=== PATIENT | male | born 1930 ===

== ENCOUNTER 2019-04-05 11:03 | Inpatient (IN) | payer OTHER ==
[~2019-04-05] VITALS: Ht 188 cm; Wt 98.2 kg
[2019-04-05] MEDS ORDERED: GLIP2.5ER PO (11:09)
[2019-04-05] MEDS ORDERED: LISI-662 PO (11:09)
[2019-04-05] MEDS ORDERED: VERA180SR PO (11:09)
[2019-04-05] MEDS ORDERED: VARD10TA20 PO (11:09)
[2019-04-05] MEDS ORDERED: ATEN50TA PO (11:09)
[2019-04-05] MEDS ORDERED: ATOR40TA28 PO (11:09)
[2019-04-05 11:41] LABS: BASOPHILS % (AUTO) 0.2 % (0.0-2.0); EOSINOPHILS % (AUTO) 0 % (1.0-6.0); HEMATOCRIT 41.6 % (41-53); HEMOGLOBIN 13.7 g/dL (13.5-17.5); LYMPHOCYTES # (AUTO) 1.1 K/uL (1.0-4.8); LYMPHOCYTES % (AUTO) 6.5 % (22.0-44.0); MEAN CORPUSCULAR HEMOGLOBIN 30.7 pg (26.0-34.0); MEAN CORPUSCULAR VOLUME 93 fL (80-100); MONOCYTES # (AUTO) 1.1 K/uL (0.1-1.0); MONOCYTES % (AUTO) 6.8 % (2.0-9.0); PLATELET COUNT (AUTO) 419 K/uL (150-450); RED BLOOD CELL COUNT(AUTO) 4.47 MIL/uL (4.50-5.90); RED CELL DISTRIBUTION WIDTH 13.7 % (11.5-14.5)
[2019-04-05 11:43] LABS: APPEARANCE,URINE CLEAR (CLEAR); BILIRUBIN,URINE NEGATIVE (NEGATIVE); GLUCOSE, URINE (UA) >=1000 mg/dL (NEGATIVE); KETONES,URINE 15 mg/dL (NEGATIVE); LEUKOCYTE ESTERASE ,URINE NEGATIVE (NEGATIVE); NEUTROPHILS % (AUTO) 86.5 % (40.0-70.0); NITRATE,URINE NEGATIVE (NEGATIVE); OCCULT BLOOD,URINE LARGE (NEGATIVE); PROTEIN,URINE SEE CONFIRM (NEGATIVE); UROBILINOGEN,URINE 0.2 mg/dL (<=1.0)
[2019-04-05] MEDS ORDERED: LORazepam 2 MG/ML VIAL ONE (11:48)
[2019-04-05] MEDS ORDERED: SODIUM CHLORIDE 0.9% 100 ML ONE (11:50)
[2019-04-05] MEDS ORDERED: IOVERSOL 350 MG/ML 100 ML VIAL ONE (11:50)
[2019-04-05 11:56] LABS: AMPHET/METH SCREEN,URINE NEGATIVE (NEGATIVE); BARBITURATE SCREEN, URINE NEGATIVE (NEGATIVE); BENZODIAZEPINES SCREEN,URINE NEGATIVE (NEGATIVE); CANNABINOID SCREEN,URINE NEGATIVE (NEGATIVE); COCAINE SCREEN,URINE NEGATIVE (NEGATIVE); METHADONE SCREEN, URINE NEGATIVE (NEGATIVE); OPIATE SCREEN,URINE NEGATIVE (NEGATIVE); PROTHROMBIN TIME 10.1 SEC (9.4-11.6)
[2019-04-05 11:57] LABS: PHENCYCLIDINE SCREEN,URINE NEGATIVE (NEGATIVE)
[2019-04-05] MEDS ORDERED: LORazepam 2 MG/ML VIAL IVP ONE (12:00)
[2019-04-05 12:06] LABS: LACTIC ACID 4.2 mmol/L (0.4-2.0)
[2019-04-05 12:09] LABS: ALANINE AMINOTRANSFERASE 17 U/L (12-78); ALBUMIN 3.5 g/dL (3.4-5.0); ALKALINE PHOSPHATASE 105 U/L (46-116); ANION GAP 20 mmol/L (8-16); ASPARTATE AMINOTRANSFERASE 32 U/L (15-37); BILIRUBIN,TOTAL 0.8 mg/dL (0.1-1.0); CALCIUM, TOTAL 9.9 mg/dL (8.8-10.5); CARBON DIOXIDE 19 mmol/L (22-29); CHLORIDE 95 mmol/L (98-107); CREATININE 2.08 mg/dL (0.60-1.30); GLOMERULAR FILTR. RATE CALC 28 mL/min (>60); POTASSIUM 3.9 mmol/L (3.5-5.1); SODIUM SERUM 134 mmol/L (136-145); TOTAL PROTEIN, SERUM 8.5 g/dL (6.4-8.2); UREA NITROGEN, BLOOD 40 mg/dL (7-18)
[2019-04-05] MEDS ORDERED: SODIUM CHLORIDE 0.9% 3,250 ML IV ONE (12:11)
[2019-04-05 12:14] LABS: GLUCOSE,RANDOM 663 mg/dL (70-110)
[2019-04-05] MEDS ORDERED: FentaNYL CITRATE-PF 100 MCG/2 ML VIAL ONE (12:19)
[2019-04-05 12:21] LABS: SULFOSALICYLIC ACID,URINE 3+ (Negative)
[2019-04-05 12:23] LABS: RBC,URINE 0-2 /HPF (0-2)
[2019-04-05 12:24] LABS: BACTERIA,URINE None Seen /HPF (None Seen); SQUAMOUS EPITHELIAL CELL,UR Few /LPF (None Seen); WBC,URINE 0-2 /HPF (0-5)
[2019-04-05] MEDS ORDERED: FentaNYL CITRATE-PF 100 MCG/2 ML VIAL IVP ONE (12:30)
[2019-04-05] MEDS ORDERED: INSULIN REGULAR, HUMAN 100 UNITS/ML IVP ONE ×4 (12:30→20:45)
[2019-04-05] MEDS ORDERED: PIPERACILLIN/TAZO 3.375 GM/D5W 50 ML IV ONE (13:45)
[2019-04-05] MEDS ORDERED: LABETALOL HCL 5 MG/ML 20 ML VIAL IVP ONE ×2 (13:45→14:45)
[2019-04-05] MEDS ORDERED: ASPIRIN 325 MG TABLET PO ONE (13:45)
[2019-04-05] MEDS ORDERED: CefTRIAXone 1 GM/DEXTROSE 50 ML IV ONE (13:45)
[2019-04-05 14:14] LABS: GLUCOSE,POINT OF CARE 507 MG/DL (70-110)
[2019-04-05] MEDS ORDERED: ASPIRIN 300 MG RECTAL SUPPOSITORY PR ONE (14:15)
[2019-04-05 14:44] LABS: ABG A-A DIFF O2 22.7 mmHg (10-20.0); ABG BASE EXCESS -5.3 mmol/L (-2.0-3.0); ABG CARBOXYHEMOGLOBIN 0.6 % (0.0-1.5); ABG HCO3 20.7 mmol/L (22.0-26.0); ABG METHEMOGLOBIN 0.1 % (0.0-1.5); ABG OXYGEN CONTENT 16.9 mL/dL (15.0-23.0); ABG OXYGEN SATURATION 94.5 % (95.0-98.0); ABG OXYHEMOGLOBIN 93.8 % (94.0-100.0); ABG PCO2 37 mmHg (35-45); ABG PH 7.358 (7.35-7.450); ABG TOTAL HEMOGLOBIN 12.8 G/dL (12.0-18.0); PO2, ARTERIAL BG 82.4 mmHg (71.0-79.0); SOURCE, BLOOD GAS ARTERIAL; TEMPERATURE, FAHRENHEIT, BG 100.5 FAHREN (96.0-98.6)
[2019-04-05 14:45] LABS: O2 DEVICE,BLOOD GAS ROOM AIR (ROOM AIR); SITE, BLOOD GAS RT RADIAL
[2019-04-05] MEDS ORDERED: NITROGLYCERIN 2% (1 GM=INCH) PACKET TP ONE (14:45)
[2019-04-05] MEDS ORDERED: VANCOMYCIN HCL 1 GM/D5% WATER 200 ML IV ONE ×2 (15:15→21:30)
[2019-04-05 15:21] LABS: GLUCOSE,POINT OF CARE 459 MG/DL (70-110)
[2019-04-05] MEDS: NITROPRUSSIDE SODIUM 50 MG in DEXTROSE 5%-WATER 248 ML IV PRN ×2 (15:32→19:52)
[2019-04-05 15:36] LABS: INFLUENZA TYPE A NEGATIVE FOR TYPE A (NEGATIVE); INFLUENZA TYPE B NEGATIVE FOR TYPE B (NEGATIVE)
[2019-04-05] MEDS ORDERED: ONDANSETRON HCL 4 MG/2 ML VIAL IVP PRN (16:00)
[2019-04-05] MEDS ORDERED: 0.9% SODIUM CHLORIDE 10 ML SYRINGE IVP PRN (16:00)
[2019-04-05] MEDS ORDERED: ACETAMINOPHEN 325 MG TABLET PO PRN (16:00)
[2019-04-05 16:36] LABS: GLUCOSE,POINT OF CARE 403 MG/DL (70-110)
[2019-04-05 18:38] LABS: GLUCOSE,POINT OF CARE 409 MG/DL (70-110)
[2019-04-05 20:00] VITALS: BP 195/116
[2019-04-05] MEDS ORDERED: SODIUM CHLORIDE 0.45% 1,000 ML IV PRN ×2 (20:38→20:50)
[2019-04-05] MEDS ORDERED: POTASSIUM CHL 20 MEQ/0.45% NS 1,000 ML IV PRN ×2 (20:38→20:50)
[2019-04-05] MEDS ORDERED: POTASSIUM CHLORIDE 40 MEQ in SODIUM CHLORIDE 0.45% 1,000 ML IV PRN ×2 (20:38→20:50)
[2019-04-05] MEDS ORDERED: DEXTROSE 5%-0.45% SODIUM CHL 1,000 ML IV PRN ×2 (20:38→20:50)
[2019-04-05] MEDS ORDERED: VANCOMYCIN HCL 1 GM/D5% WATER 200 ML IV SCH (20:45)
[2019-04-05] MEDS ORDERED: INSULIN REGULAR, HUMAN 100 UNITS/ML IVP PRN (20:45)
[2019-04-05] MEDS ORDERED: DEXTROSE 50%-WATER 25 GM/50 ML SYRINGE IVP PRN ×2 (20:45→21:00)
[2019-04-05] MEDS ORDERED: SODIUM CHLORIDE 0.9% 1,000 ML IV SCH (20:50)
[2019-04-05 21:11] LABS: BASOPHILS % (AUTO) 0.5 % (0.0-2.0); EOSINOPHILS % (AUTO) 0.1 % (1.0-6.0); HEMATOCRIT 36.8 % (41-53); HEMOGLOBIN 12.5 g/dL (13.5-17.5); LYMPHOCYTES # (AUTO) 1.7 K/uL (1.0-4.8); LYMPHOCYTES % (AUTO) 9.2 % (22.0-44.0); MEAN CORPUSCULAR HEMOGLOBIN 30.8 pg (26.0-34.0); MEAN CORPUSCULAR HGB CONC 33.9 G/dL (31.0-37.0); MEAN CORPUSCULAR VOLUME 91 fL (80-100); MONOCYTES # (AUTO) 1.7 K/uL (0.1-1.0); MONOCYTES % (AUTO) 9.4 % (2.0-9.0); NEUTROPHILS # (AUTO) 14.6 K/uL (1.8-7.7); NEUTROPHILS % (AUTO) 80.8 % (40.0-70.0); PLATELET COUNT (AUTO) 375 K/uL (150-450); RED BLOOD CELL COUNT(AUTO) 4.04 MIL/uL (4.50-5.90); RED CELL DISTRIBUTION WIDTH 13.7 % (11.5-14.5)
[2019-04-05] MEDS ORDERED: VANCOMYCIN HCL 1 GM/D5% WATER 200 ML IV PRN ×2 (21:15)
[2019-04-05] MEDS: SODIUM CHLORIDE 0.45% 1,000 ML IV SCH (21:16)
[2019-04-05 21:25] LABS: ALBUMIN 3.1 g/dL (3.4-5.0); BILIRUBIN,TOTAL 0.7 mg/dL (0.1-1.0); CALCIUM, TOTAL 8.6 mg/dL (8.8-10.5); CREATININE 1.98 mg/dL (0.60-1.30); MAGNESIUM 1.9 mg/dL (1.80-2.40); POTASSIUM 3.5 mmol/L (3.5-5.1); TOTAL PROTEIN, SERUM 7.7 g/dL (6.4-8.2)
[2019-04-05] MEDS: INSULIN REGULAR, HUMAN 100 UNITS in SODIUM CHLORIDE 0.9% 99 ML IV PRN ×4 (21:35→23:09)
[2019-04-05] MEDS: PIPERACILLIN/TAZO 3.375 GM/D5W 50 ML IV SCH (22:18)
[2019-04-05] MEDS: INSULIN REGULAR, HUMAN 100 UNITS/ML IVP PRN (23:10)
[2019-04-05] MEDS ORDERED: PNEUMOCOCCAL VACCINE POLYVALENT 0.5 ML VIAL [PPSV23] IM ONE (23:45)
[2019-04-05] MEDS ORDERED: INFLUENZA VIRUS VACCINE QVS 2019-20 (3YR+)/PF 60 MCG/0.5 ML SYRINGE IM ONE (23:45)
[2019-04-06] VITALS (7 sets, daily range): BP systolic 126–162; BP diastolic 79–104
[2019-04-06] MEDS: INSULIN REGULAR, HUMAN 100 UNITS/ML IVP PRN (00:10)
[2019-04-06 01:18] LABS: GLUCOSE,POINT OF CARE 315 MG/DL (70-110)
[2019-04-06 01:18] LABS: GLUCOSE,POINT OF CARE 364 MG/DL (70-110)
[2019-04-06 01:18] LABS: GLUCOSE,POINT OF CARE 214 MG/DL (70-110)
[2019-04-06 01:18] LABS: GLUCOSE,POINT OF CARE 286 MG/DL (70-110)
[2019-04-06 01:47] LABS: CALCIUM, TOTAL 8.6 mg/dL (8.8-10.5); CREATININE 1.96 mg/dL (0.60-1.30); POTASSIUM 3.3 mmol/L (3.5-5.1)
[2019-04-06 02:15] LABS: GLUCOSE,POINT OF CARE 167 MG/DL (70-110)
[2019-04-06] MEDS: POTASSIUM CHL 10 MEQ/WATER 50 ML IV PRN ×3 (02:23→06:07)
[2019-04-06] MEDS: PIPERACILLIN/TAZO 3.375 GM/D5W 50 ML IV SCH ×4 (03:10→22:05)
[2019-04-06 03:24] LABS: GLUCOSE,POINT OF CARE 128 MG/DL (70-110)
[2019-04-06 03:25] LABS: GLUCOSE,POINT OF CARE 414 MG/DL (70-110)
[2019-04-06 05:09] LABS: BASOPHILS % (AUTO) 0.4 % (0.0-2.0); EOSINOPHILS % (AUTO) 0 % (1.0-6.0); HEMATOCRIT 35.4 % (41-53); HEMOGLOBIN 12.3 g/dL (13.5-17.5); LYMPHOCYTES # (AUTO) 1.8 K/uL (1.0-4.8); LYMPHOCYTES % (AUTO) 9.9 % (22.0-44.0); MEAN CORPUSCULAR HEMOGLOBIN 31.1 pg (26.0-34.0); MEAN CORPUSCULAR HGB CONC 34.7 G/dL (31.0-37.0); MEAN CORPUSCULAR VOLUME 90 fL (80-100); NEUTROPHILS # (AUTO) 14.5 K/uL (1.8-7.7); NEUTROPHILS % (AUTO) 78.7 % (40.0-70.0); PLATELET COUNT (AUTO) 355 K/uL (150-450); RED BLOOD CELL COUNT(AUTO) 3.95 MIL/uL (4.50-5.90); RED CELL DISTRIBUTION WIDTH 13.7 % (11.5-14.5)
[2019-04-06 05:16] LABS: GLUCOSE,POINT OF CARE 108 MG/DL (70-110)
[2019-04-06 05:16] LABS: GLUCOSE,POINT OF CARE 84 MG/DL (70-110)
[2019-04-06 05:31] LABS: ALBUMIN 2.9 g/dL (3.4-5.0); BILIRUBIN,TOTAL 0.9 mg/dL (0.1-1.0); CALCIUM, TOTAL 8.5 mg/dL (8.8-10.5); CREATININE 1.89 mg/dL (0.60-1.30); MAGNESIUM 1.8 mg/dL (1.80-2.40); PHOSPHORUS 2.7 mg/dL (2.5-4.9); POTASSIUM 3.6 mmol/L (3.5-5.1); TOTAL PROTEIN, SERUM 7.3 g/dL (6.4-8.2)
[2019-04-06] MEDS: SODIUM CHLORIDE 0.45% 1,000 ML IV SCH ×2 (06:06→15:48)
[2019-04-06 06:11] LABS: GLUCOSE,POINT OF CARE 107 MG/DL (70-110)
[2019-04-06] MEDS ORDERED: DEXTROSE 50%-WATER 25 GM/50 ML SYRINGE IVP PRN (07:00)
[2019-04-06] MEDS: ATORVASTATIN CALCIUM 40 MG TABLET PO SCH (09:00)
[2019-04-06] MEDS: INSULIN REGULAR, HUMAN 100 UNITS/ML SQ PRN ×4 (09:29→23:39)
[2019-04-06 09:34] LABS: GLUCOSE,POINT OF CARE 257 MG/DL (70-110)
[2019-04-06] MEDS ORDERED: SODIUM CHLORIDE 0.9% 250 ML IV ONE (09:38)
[2019-04-06] MEDS ORDERED: LORazepam 2 MG/ML VIAL IVP PRN (09:45)
[2019-04-06] MEDS ORDERED: LevETIRAcetam 1,000 MG in DEXTROSE 5%-WATER 100 ML IV ONE (10:15)
[2019-04-06 17:45] LABS: GLUCOSE,POINT OF CARE 383 MG/DL (70-110)
[2019-04-06] MEDS: LevETIRAcetam 500 MG in DEXTROSE 5%-WATER 100 ML IV SCH (20:44)
[2019-04-07] VITALS: BP 154/99
[2019-04-07] MEDS ORDERED: SODIUM CHLORIDE 0.9% 250 ML IV ONE (01:41)
[2019-04-07] MEDS: SODIUM CHLORIDE 0.45% 1,000 ML IV SCH ×2 (02:32→10:58)
[2019-04-07 04:00] VITALS: BP 153/84
[2019-04-07] MEDS: PIPERACILLIN/TAZO 3.375 GM/D5W 50 ML IV SCH ×2 (04:11→09:51)
[2019-04-07] MEDS: INSULIN REGULAR, HUMAN 100 UNITS/ML SQ PRN ×2 (05:26→11:56)
[2019-04-07 05:30] LABS: BASOPHILS % (AUTO) 0.5 % (0.0-2.0); EOSINOPHILS % (AUTO) 0 % (1.0-6.0); HEMATOCRIT 36.3 % (41-53); HEMOGLOBIN 12.3 g/dL (13.5-17.5); LYMPHOCYTES # (AUTO) 2.1 K/uL (1.0-4.8); LYMPHOCYTES % (AUTO) 15.1 % (22.0-44.0); MEAN CORPUSCULAR HEMOGLOBIN 30.7 pg (26.0-34.0); MEAN CORPUSCULAR HGB CONC 33.8 G/dL (31.0-37.0); MEAN CORPUSCULAR VOLUME 91 fL (80-100); MONOCYTES # (AUTO) 1.3 K/uL (0.1-1.0); MONOCYTES % (AUTO) 9.8 % (2.0-9.0); NEUTROPHILS # (AUTO) 10.1 K/uL (1.8-7.7); NEUTROPHILS % (AUTO) 74.6 % (40.0-70.0); PLATELET COUNT (AUTO) 333 K/uL (150-450); RED BLOOD CELL COUNT(AUTO) 3.99 MIL/uL (4.50-5.90); RED CELL DISTRIBUTION WIDTH 13.6 % (11.5-14.5)
[2019-04-07 05:31] LABS: GLUCOSE,POINT OF CARE 165 MG/DL (70-110)
[2019-04-07 05:31] LABS: GLUCOSE,POINT OF CARE 231 MG/DL (70-110)
[2019-04-07 05:42] LABS: CALCIUM, TOTAL 8.1 mg/dL (8.8-10.5); CREATININE 2.09 mg/dL (0.60-1.30); POTASSIUM 3.5 mmol/L (3.5-5.1); VANCOMYCIN,RANDOM 8.4 mcg/mL (25.0-50.0)
[2019-04-07 07:32] LABS: GLUCOSE,POINT OF CARE 192 MG/DL (70-110)
[2019-04-07 08:00] VITALS: BP 164/96
[2019-04-07] MEDS ORDERED: VANCOMYCIN HCL 1 GM/D5% WATER 200 ML IV ONE (08:00)
[2019-04-07] MEDS ORDERED: VANCOMYCIN HCL 1.25 GM in DEXTROSE 5%-WATER 250 ML IV ONE (08:00)
[2019-04-07] MEDS: LevETIRAcetam 500 MG in DEXTROSE 5%-WATER 100 ML IV SCH (08:35)
[2019-04-07] MEDS: POTASSIUM CHL 10 MEQ/WATER 50 ML IV PRN ×3 (08:36→11:00)
[2019-04-07] MEDS: ATORVASTATIN CALCIUM 40 MG TABLET PO SCH (09:00)
[2019-04-07 12:00] VITALS: BP 156/96
[2019-04-07 12:07] LABS: GLUCOSE,POINT OF CARE 273 MG/DL (70-110)
== END 2019-04-07 14:05 | disposition short-term general hospital (02) | DRG 871 ==
LOC: EDBD 11:05 → EMS 11:05 → ICU 19:03
PROVIDERS: ADMIT Hospitalist; ATTEND Hospitalist
PROC: 4A00X4Z Measurement of Central Nervous Electrical Activity, External Approach (ICD-10-PCS; principal; 2019-04-06)
DX: A41.9 Sepsis, unspecified organism (principal); E11.10 Type 2 diabetes mellitus with ketoacidosis without coma; G93.41 Metabolic encephalopathy; I21.4 Non-ST elevation (NSTEMI) myocardial infarction; M62.82 Rhabdomyolysis; I10 Essential (primary) hypertension; E78.00 Pure hypercholesterolemia, unspecified; E78.5 Hyperlipidemia, unspecified; R56.9 Unspecified convulsions; Z79.899 Other long term (current) drug therapy
CPT/HCPCS: 36600; 70496; 70551; 74176; 82805; 83036; 83605; 83735; 84100; 84132; 87040; 87081; 87804; 92610; 93005; 93306; 93880; 95816; 96365; 96375; 99291; G0378; J0712; J1815; J2060; J2543; J3010; J3370; J3480; J3490; J7030; J7050; J7060